=== PATIENT | female | born 1975 | race Hispanic/Latino ===

== ENCOUNTER 2023-03-12 12:02 | Emergency (ER) | payer OTHER, BC ==
[~2023-03-12] VITALS: Ht 175.3 cm; Wt 90.7 kg
[2023-03-12 12:52] VITALS: BP 145/98; PULSE 60; RESP 20
[2023-03-12] MEDS ORDERED: IBUPROFEN 600 MG TABLET PO ONE (14:30)
[2023-03-12] MEDS ORDERED: CYCLOBENZAPRINE HCL 10 MG TABLET PO ONE (14:30)
[2023-03-12] MEDS ORDERED: IBUP-2070 PO (15:56)
[2023-03-12] MEDS ORDERED: CYCL5TAB PO (15:56)
== END 2023-03-12 16:05 | disposition home or self-care (01) ==
LOC: EDH 12:02
DX: M54.2 Cervicalgia (principal); M25.531 Pain in right wrist; V89.2XXA Person injured in unspecified motor-vehicle accident, traffic, initial encounter; Y93.89 Activity, other specified; Y92.89 Other specified places as the place of occurrence of the external cause; Y99.8 Other external cause status
CPT/HCPCS: 72040; 73100; 73130